=== PATIENT | male | born 1955 | race Caucasian/White ===

== ENCOUNTER 2020-11-06 20:42 | Observation (INO) | payer SELFPAY ==
[~2020-11-06] VITALS: Ht 180.3 cm; Wt 97.5 kg
[2020-11-06] MEDS ORDERED: ASPIRIN 81 MG CHEW TAB PO ONE (21:00)
[2020-11-06 21:18] LABS: BASOPHILS # (AUTO) 0.1 (0.0-0.1); BASOPHILS % 0.7 % (0.0-1.0); EOSINOPHILS # (AUTO) 0.2 (0.0-0.4); EOSINOPHILS % 1.4 % (0.0-6.0); HEMATOCRIT 48.9 % (38.2-49.6); HEMOGLOBIN 16.4 g/dL (14.0-18.0); LYMPHOCYTES # (AUTO) 3.3 (1.0-3.2); LYMPHOCYTES % 29.2 % (18.0-39.1); MEAN CORPUSCULAR HEMOGLOBIN 29.9 pg (28-32); MEAN CORPUSCULAR HGB CONC 33.5 g/dL (31-35); MEAN CORPUSCULAR VOLUME 89.2 fL (81-99); MONOCYTES # (AUTO) 1.2 (0.2-0.8); MONOCYTES % 10.5 % (4.4-11.3); NEUTROPHILS # (AUTO) 6.5 (2.1-6.9); NEUTROPHILS % 57.8 % (38.7-80.0); PLATELET COUNT 282 x10e3/uL (140-360); RED BLOOD COUNT 5.48 x10e6/uL (4.3-5.7); RED CELL DISTRIBUTION WIDTH 13.2 % (11.7-14.4)
[2020-11-06 21:34] LABS: INR 0.85; PARTIAL THROMBOPLASTIN TIME 25.3 seconds (23.8-35.5); PROTHROMBIN TIME 12.2 seconds (11.9-14.5)
[2020-11-06 21:46] LABS: ALANINE AMINOTRANSFERASE 19 IU/L (0-55); ALBUMIN/GLOBULIN RATIO 1.2 (0.8-2.0); ALKALINE PHOSPHATASE 80 IU/L (40-150); ANION GAP 15.8 mmol/L (8-16); BLOOD UREA NITROGEN 16 mg/dL (7-26); BUN/CREATININE RATIO 19 (6-25); CARBON DIOXIDE 24 mmol/L (22-29); CHLORIDE 105 mmol/L (98-107); CREATINE KINASE 68 IU/L (30-200); CREATININE, SERUM 0.86 mg/dL (0.72-1.25); EST GLOMERULAR FILTRATION RATE > 60 ML/MIN (60-); GLUCOSE 92 mg/dL (74-118); POTASSIUM 3.8 mmol/L (3.5-5.1); SODIUM 141 mmol/L (136-145)
[2020-11-06] MEDS ORDERED: ASPIRIN 81 MG CHEW TAB ONE (22:46)
[2020-11-06] MEDS ORDERED: SODIUM CHLORIDE 0.9% 100 ML ONE (23:31)
[2020-11-06] MEDS ORDERED: IOPAMIDOL 370 MG/ML 200 ML INFUS..BTL INJ ONE (23:31)
[2020-11-07] MEDS ORDERED: SODIUM CHLORIDE FLUSH 10 ML SYR INJ PRN (01:15)
[2020-11-07] MEDS ORDERED: ONDANSETRON HCL INJ 2MG/ML 2ML 2 MG/ML VIAL IV PRN (01:15)
[2020-11-07] MEDS ORDERED: MORPHINE SULFATE INJ 2 MG/ML SYR IV PRN (01:15)
[2020-11-07] MEDS: NITROGLYCERIN 2% OINT 1 GM PKT TOP SCH ×3 (01:18→06:00)
[2020-11-07] MEDS ORDERED: ACETAMINOPHEN 325 MG TAB PO PRN (01:30)
[2020-11-07 06:10] LABS: CREATINE KINASE MB 0.8 ng/mL (0-5.0)
[2020-11-07] MEDS ORDERED: ASPIRIN 325 MG TAB EC PO SCH (09:00)
[2020-11-07 10:09] VITALS: BP 114/76
[2020-11-07 13:37] VITALS: BP 114/76
== END 2020-11-07 13:42 | disposition home or self-care (01) ==
LOC: ER 21:00 → ERHOLD 11-07 01:09
PROVIDERS: ADMIT Family Medicine; ATTEND Family Medicine
DX: I25.10 Atherosclerotic heart disease of native coronary artery without angina pectoris (principal); R07.2 Precordial pain; Z20.822 Contact with and (suspected) exposure to COVID-19; I10 Essential (primary) hypertension
CPT/HCPCS: 36415 ×2; 71045; 71275; 80053; 82550 ×2; 82553 ×2; 84484 ×2; 85025; 85610; 85730; 93306; 99284; G0378; J7050; Q9967; U0002

== ENCOUNTER → 2021-08-07 | Outpatient (CLI) | payer MEDICARE | LOC: RAD 09:43 | PROVIDERS: ATTEND Internal Medicine Gastroenterology | DX: K59.09 Other constipation (principal) | CPT/HCPCS: 74018 ==

== ENCOUNTER → 2021-08-12 | Outpatient (CLI) | payer MEDICARE ==
[~2021-08-12] MED LIST: ASPIRIN81 MG PO; ATORVASTATIN CA20 MG PO; DIATRIZOATE MEGL/DIATRIZOA SOD 30 ML BTL PO ONE; IOPAMIDOL 370 MG/ML 200 ML INFUS..BTL INJ ONE; MELATONIN3 MG PO; METOPROLOL SUCC25 MG PO; SODIUM CHLORIDE 0.9% 50ML 50 ML ONE
[2021-08-12 15:58] LABS: CREATININE, SERUM 0.85 mg/dL (0.72-1.25)
== END ==
LOC: CT 14:46
PROVIDERS: ATTEND Internal Medicine Gastroenterology
DX: K59.09 Other constipation (principal); R19.8 Other specified symptoms and signs involving the digestive system and abdomen; R10.30 Lower abdominal pain, unspecified
CPT/HCPCS: 36415; 74177; 82565; 84520; Q9967

== ENCOUNTER → 2021-08-15 | Day surgery (SDC) | payer MEDICARE ==
[~2021-08-15] MED LIST changes: -DIATRIZOATE MEGL/DIATRIZOA SOD 30 ML BTL PO ONE; +FENTANYL CITRATE/PF 100MCG/2 ML INJ ONE; +GLUCAGON FOR INJ 1 MG VIAL ONE; -IOPAMIDOL 370 MG/ML 200 ML INFUS..BTL INJ ONE; +LIDOCAINE HCL 2% LOCAL INJ 5 ML SDV VIAL INJ ONE; +MIDAZOLAM HCL 2 MG/2 ML VIAL ONE; +PROPOFOL IV EMULSION 10 MG/ML 20 ML VIAL ONE; -SODIUM CHLORIDE 0.9% 50ML 50 ML ONE
[2021-08-15 10:35] VITALS: BP 106/77
== END | disposition home or self-care (01) ==
LOC: OR 07:36
PROVIDERS: ATTEND Internal Medicine Gastroenterology
DX: R13.10 Dysphagia, unspecified (principal); K63.5 Polyp of colon; K29.70 Gastritis, unspecified, without bleeding; K22.70 Barrett's esophagus without dysplasia; K58.9 Irritable bowel syndrome, unspecified; K22.89 Other specified disease of esophagus; K59.09 Other constipation; K57.30 Diverticulosis of large intestine without perforation or abscess without bleeding; K64.8 Other hemorrhoids; Z71.3 Dietary counseling and surveillance; I10 Essential (primary) hypertension; R06.83 Snoring; E78.00 Pure hypercholesterolemia, unspecified; Z88.0 Allergy status to penicillin; Z88.8 Allergy status to other drugs, medicaments and biological substances; Z01.810 Encounter for preprocedural cardiovascular examination; Z01.812 Encounter for preprocedural laboratory examination; Z20.822 Contact with and (suspected) exposure to COVID-19; Z79.82 Long term (current) use of aspirin; Z79.899 Other long term (current) drug therapy; Z68.29 Body mass index [BMI] 29.0-29.9, adult; Z87.01 Personal history of pneumonia (recurrent); Z86.16 Personal history of COVID-19; Z80.0 Family history of malignant neoplasm of digestive organs
CPT/HCPCS: 43239; 45380; 88305; 88312; J1610; J2001; J2250; J2704; J3010; 45378; 93005; U0002